=== PATIENT | male | born 1975 | race African-American/Black ===

== ENCOUNTER 2018-08-24 18:37 | Emergency (ER) | payer SELFPAY ==
[~2018-08-24] VITALS: Ht 175.3 cm; Wt 108.9 kg
--- OUTSIDE RECORDS SUMMARY | 2018-08-24 18:40 | XMS REPORT ---
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 Allergies, Adverse Reactions, Alerts Allergy Name Allergy Type Status Severity Reaction(s) Onset Date Inactive Date Treating Clinician Comments candiec SHEPPARD Active U 2018-05-24 00:00:00 Medications This patient has no known medications.
[2018-08-24 20:09] VITALS: BP 158/89
== END 2018-08-24 20:16 | disposition home or self-care (01) ==
LOC: FSED 18:37
DX: R50.9 Fever, unspecified (principal); R05 Cough; B34.9 Viral infection, unspecified
CPT/HCPCS: 83518; 87400; 99282

== ENCOUNTER 2020-10-24 10:30 | Emergency (ER) | payer BC, MEDICAID ==
[~2020-10-24] VITALS: Ht 172.7 cm; Wt 110.5 kg
[2020-10-24] MEDS ORDERED: NOVOLOG100 UNIT/1 SC (10:43)
[2020-10-24] MEDS ORDERED: LEVEMIR FL100 UNIT/1 SC (10:43)
[2020-10-24] MEDS ORDERED: IBUPROFEN 400 MG TAB ONE (10:57)
[2020-10-24] MEDS ORDERED: IBUPROFEN 400 MG TAB PO ONE (11:00)
== END 2020-10-24 11:55 | disposition home or self-care (01) ==
LOC: FSED 11:01
DX: S60.221A Contusion of right hand, initial encounter (principal); M79.89 Other specified soft tissue disorders; W23.1XXA Caught, crushed, jammed, or pinched between stationary objects, initial encounter; E11.9 Type 2 diabetes mellitus without complications; J45.909 Unspecified asthma, uncomplicated; E66.9 Obesity, unspecified; F17.210 Nicotine dependence, cigarettes, uncomplicated
CPT/HCPCS: 99283

== ENCOUNTER 2021-01-16 01:02 | Emergency (ER) | payer MEDICAID ==
[~2021-01-16] VITALS: Ht 175.3 cm; Wt 112.9 kg
[~2021-01-16 01:02] MED LIST: LEVEMIR FL100 UNIT/1 SC; NOVOLOG100 UNIT/1 SC
[2021-01-16] MEDS ORDERED: SODIUM CHLORIDE 0.9% 1000ML 1,000 ML IV STA (01:32)
[2021-01-16] MEDS ORDERED: KETOROLAC TROMETHAMINE 30 MG/ML VIAL IV ONE (01:45)
[2021-01-16] MEDS ORDERED: FAMOTIDINE 20 MG/2 ML VIAL IV ONE ×2 (01:45→01:58)
[2021-01-16] MEDS ORDERED: ONDANSETRON HCL INJ 2MG/ML 2ML 2 MG/ML VIAL IV ONE (01:45)
[2021-01-16] MEDS ORDERED: HYDROCODONE/APAP 5MG-325MG TAB PO ONE (01:45)
[2021-01-16] MEDS ORDERED: ONDANSETRON HCL INJ 2MG/ML 2ML 2 MG/ML VIAL ONE (01:57)
[2021-01-16] MEDS ORDERED: HYDROCODONE/APAP 5MG-325MG TAB ONE (01:57)
[2021-01-16] MEDS ORDERED: KETOROLAC TROMETHAMINE 30 MG/ML VIAL ONE (01:57)
[2021-01-16] MEDS ORDERED: SODIUM CHLORIDE 0.9% 1000ML 1,000 ML ONE (01:58)
[2021-01-16] MEDS ORDERED: ONDANSETRON ODT4 MG PO (03:06)
[2021-01-16] MEDS ORDERED: OMEPRAZOLE40 MG PO (03:06)
[2021-01-16] MEDS ORDERED: ULTRAM 50MG50 MG PO (03:06)
[2021-01-16 03:10] VITALS: BP 141/76
== END 2021-01-16 03:10 | disposition home or self-care (01) ==
LOC: FSED 01:09
DX: R10.11 Right upper quadrant pain (principal); R11.0 Nausea; E11.65 Type 2 diabetes mellitus with hyperglycemia; J45.909 Unspecified asthma, uncomplicated; E66.9 Obesity, unspecified
CPT/HCPCS: 74176; 80053; 81003; 85025; 96374; 96375; 96376; 99284; J1885; J2405; J7030

== ENCOUNTER 2021-02-01 00:13 | Emergency (ER) | payer BC, MEDICAID, OTHER ==
[~2021-02-01] VITALS: Ht 175.3 cm; Wt 112.9 kg
[~2021-02-01 00:13] MED LIST changes: +OMEPRAZOLE40 MG PO; +ONDANSETRON ODT4 MG PO; +ULTRAM 50MG50 MG PO
== END 2021-02-01 01:15 | disposition home or self-care (01) ==
LOC: FSED 01:00
DX: J02.9 Acute pharyngitis, unspecified (principal); Z88.5 Allergy status to narcotic agent
CPT/HCPCS: 99282

== ENCOUNTER 2021-08-31 14:11 | Emergency (ER) | payer MEDICAID ==
[~2021-08-31] VITALS: Ht 175.3 cm; Wt 111.2 kg
[2021-08-31] MEDS ORDERED: ZITHROMAX250 MG PO (15:43)
[2021-08-31] MEDS ORDERED: VENTOLIN HFA18 GM INH (15:51)
== END 2021-08-31 16:00 | disposition home or self-care (01) ==
LOC: FSED 14:20
DX: R05.9 Cough, unspecified (principal); J20.9 Acute bronchitis, unspecified; B34.9 Viral infection, unspecified; E11.9 Type 2 diabetes mellitus without complications; J45.909 Unspecified asthma, uncomplicated; E66.9 Obesity, unspecified; F17.210 Nicotine dependence, cigarettes, uncomplicated
CPT/HCPCS: 81003; 93005; 99283